=== PATIENT | female | born 1980 | race Caucasian/White ===

== ENCOUNTER 2024-12-31 06:30 | Day surgery (SDC) | payer BC ==
[2024-12-31] MEDS: Lactated Ringers 1,000 ML IV SCH (06:15)
[~2024-12-31 06:30] MED LIST: Sodium Chloride 0.9% 10 ML Syringe FLUSH PRN; Sodium Chloride 0.9% 10 ML Syringe FLUSH SCH
[2024-12-31 06:47] LABS: BASOPHILS ABSOLUTE AUTO 0.1 K/mm3 (0.0-0.2); BASOPHILS PERCENT AUTO 0.9 % (0.0-1.0); EOSINOPHILS ABSOLUTE AUTO 0.1 K/mm3 (0.0-0.4); EOSINOPHILS PERCENT AUTO 2.0 % (0.0-6.0); IMMATURE GRAN ABSOLUTE AUTO 0.02 K/mm3 (0.00-0.05); IMMATURE GRAN PERCENT AUTO 0.3 % (0.0-0.4); LYMPHOCYTES ABSOLUTE AUTO 2.1 K/mm3 (1.0-4.8); LYMPHOCYTES PERCENT AUTO 29.4 % (24.0-44.0); MEAN PLATELET VOLUME 9.2 fl (9.4-12.3); MONOCYTES ABSOLUTE AUTO 0.6 K/mm3 (0.0-0.8); MONOCYTES PERCENT AUTO 7.9 % (0.0-8.0); NEUTROPHILS ABSOLUTE AUTO 4.2 K/mm3 (1.8-7.7); NEUTROPHILS PERCENT AUTO 59.5 % (41.0-71.0); NRBC ABSOLUTE 0.00 (0.00-0.02); NRBC PERCENT 0.0 % (0.0-0.2); PLATELET COUNT,PLT 269 K/mm3 (150-400); RED BLOOD CELL COUNT 5.54 M/mm3 (4.10-5.30); WHITE BLOOD CELL COUNT,WBC 7.05 K/mm3 (3.9-11.3)
[2024-12-31] MEDS ORDERED: propofoL 1,000 MG/100 ML 200 ML ONE (06:51)
[2024-12-31 06:56] LABS: BLOOD UREA NITROGEN,BUN 10.0 mg/dL (7-18); CARBON DIOXIDE,CO2 24.0 mEq/L (21-32); CHLORIDE,CL 107.0 mEq/L (98-107); CREATININE 0.6 mg/dL (0.55-1.02); EST CRCL DRUG DOSING (CG) 62.33 mL/min; ESTIMATED GFR 113.0 mL/min (>60); GLUCOSE RANDOM 94.0 mg/dL (70-99); POTASSIUM,K 3.8 mEq/L (3.5-5.1); SODIUM,NA 141.0 mEq/L (136-145)
[2024-12-31] MEDS ORDERED: fentaNYL 250 MCG/5 ML SDV ONE (07:00)
[2024-12-31] MEDS ORDERED: Midazolam 1 MG/ML 2 ML SDV ONE (07:00)
[2024-12-31] MEDS ORDERED: Ketamine HCL/NACL, ISO-OSM 50 MG/5 ML Syringe ONE (07:00)
[2024-12-31] MEDS ORDERED: Esmolol 100 MG/10 ML SDV ONE (07:03)
[2024-12-31] MEDS ORDERED: dexmedeTOMIDine HCl 200 MCG/2 ML SDV ONE (07:03)
[2024-12-31] MEDS ORDERED: Ketorolac 30 MG/ML SDV ONE (07:03)
[2024-12-31] MEDS ORDERED: Dexamethasone 4 MG/ML 5 ML MDV ONE (07:03)
[2024-12-31] MEDS ORDERED: Glycopyrrolate 0.2 MG/ML 2 ML SDV ONE (07:03)
[2024-12-31] MEDS ORDERED: Ondansetron 4 MG/2 ML SDV IVPUSH PRN (08:13)
[2024-12-31] MEDS: Lidocaine 1% with EPINEPHrine 1:100,000 20 ML MDV ONE (08:24)
[2024-12-31] MEDS ORDERED: Lactated Ringers 1,000 ML ONE (08:31)
[2024-12-31] MEDS: fentaNYL 100 MCG/2 ML SDV IVPUSH PRN (09:31)
[2024-12-31] MEDS: Acetaminophen/oxyCODONE 325-5 MG Tab PO ONE (11:53)
== END 2024-12-31 12:38 | disposition home or self-care (01) ==
LOC: JD.SDS 06:30
PROVIDERS: ATTEND Obstetrics & Gynecology
DX: N72 Inflammatory disease of cervix uteri (principal); N80.03 Adenomyosis of the uterus; D25.9 Leiomyoma of uterus, unspecified; Z88.1 Allergy status to other antibiotic agents; Z88.5 Allergy status to narcotic agent; Z91.040 Latex allergy status; Z79.899 Other long term (current) drug therapy
CPT/HCPCS: 36415; 58552; 80048; 81025; 85025; 86850; 86900; 86901; A9270; J0665; J0690; J1100; J1596; J1805; J1885; J2003; J2004; J2250; J2704; J3010; J7120; J1171; J3490